=== PATIENT | female | born 1955 | race Caucasian/White ===

== ENCOUNTER → 2016-06-26 | Outpatient (CLI) | payer BC ==
--- NOTE | ~2016-06-26 | WRIGHTHP ---
[place], [place] PATIENT HISTORY AND PHYSICAL EXAM NAME: SARA MADERA UNIT #: [id number] ROOM: DOCTOR: JAYLAN DARLING M.D. BIRTHDATE: [birth year] DOS: 06/26/2016 This is a new patient evaluation, possible HBO consultation. CHIEF COMPLAINT: The patient is wanting to know if she is a candidate for hyperbaric oxygen. HISTORY OF PRESENT ILLNESS: This is a 60-year-old female who was referred to us by her primary care physician for a nonhealing wound. She has had a wound on her back side, which she states has been diagnosed as a pilonidal cyst. She has had this since about November. She has been followed by her family physician as well as Dermatology as well as family surgeon. Her surgeon was Dr. Fay, who had reported that if surgery was to be considered, she would have to be out of commission for healing for approximately 6 weeks or so, and the patient is asking whether other options are available and her primary care physician had referred her here to see if HBO could be a consideration. She is going to continue with wound care from her family physician. PAST MEDICAL HISTORY: Significant for the following: She has a history of allergies to spring and fall allergies, rhinitis, anemia in the past, history of arthritis. She is not diabetic. She is under psychiatric care. She has a history of anxiety and asthma in childhood. There is no seizure disorder. FAMILY HISTORY: Significant for cancer in her mother and father and paternal grandparents. Heart disease in her father and paternal grandparents. Hypertension in her mother, father and siblings. History of stroke in her mother and grandparents. SOCIAL HISTORY: She is a nonsmoker, single, rarely drinks alcohol. ALLERGIES: TO LATEX, NATURAL RUBBER, PENICILLIN AND SULFA. MEDICATIONS: Klonopin 0.5 mg daily if needed, Elavil 50 mg at bedtime. Trazodone 50 mg at bedtime; she has an order to increase after 2-3 days to 2 tablets at bedtime. Ibuprofen one tablet q. 6 hours p.r.n. She has had a prescription for triamcinolone of 2 times daily. REVIEW OF SYSTEMS: No fevers or chills. No chest pain, shortness of breath, nausea, vomiting, abdominal pains, or diarrhea. She says as far as she knows, the wound does not go to the bone that she is aware of. She has never been told that there is any kind of osteomyelitis associated with that. She has had cultures done, which apparently grew multiple organisms. It looks like she was treated with antibiotics and the most recent cultures apparently were negative. She does have some discomfort associated with the wound and she did show me a picture of it and it is a linear fissure type wound. At this time, the depth, I do not know what the depth is. She states that she is going to continue with wound care from her primary care physician at this time, so she declined for us to examine her wound presently. PHYSICAL EXAMINATION: [place], [place] PATIENT HISTORY AND PHYSICAL EXAM NAME: SARA MADERA UNIT #: [id number] ROOM: DOCTOR: JAYLAN DARLING M.D. BIRTHDATE: [birth year] VITAL SIGNS: Other than that, she is afebrile, pulse is 80, respirations 18 and blood pressure is 124/88. GENERAL: She is a pleasant female, morbidly obese, in no acute distress. LUNGS: Clear. CARDIOVASCULAR: S1, S2 regular rate and rhythm. ABDOMEN: Morbidly obese, soft and nontender. EXTREMITIES: No edema. Morbid obesity. LABORATORY DATA: She did have some blood work done, which showed a white count of 6.4, hemoglobin of 13, hematocrit of 40 and platelets of 260. She apparently was also recently diagnosed with the UTI and put on Cipro and Pyridium. She has normal LFTs, alkaline phosphatase is mildly elevated at 117. Potassium was 5.1, BUN and creatinine were 11 and 0.8. ASSESSMENT AND PLAN: Nonhealing wound secondary to a presumed pilonidal cyst. The patient does not meet any criteria for hyperbaric oxygen unfortunately. I did discuss this with her and she elected to go back to her primary care for further management of her wound at this time. JAYLAN DARLING MD CM:HISPHYS:PATIENT HISTORY AND PHYSICAL EXAMINATION 164 12 JAYLAN DARLING M.D. 06/26/16 1906 interface
== END ==
LOC: WOUNDCARE 09:30
DX: L05.91 Pilonidal cyst without abscess (principal); M19.90 Unspecified osteoarthritis, unspecified site; F41.9 Anxiety disorder, unspecified; J45.909 Unspecified asthma, uncomplicated; Z72.89 Other problems related to lifestyle

== ENCOUNTER → 2016-12-26 | Outpatient (CLI) | payer BC | END | disposition home or self-care (01) | LOC: ORTHO 01:03 | DX: M17.0 Bilateral primary osteoarthritis of knee (principal) ==